=== PATIENT | male | born 1960 | race Caucasian/White ===

== ENCOUNTER 2018-05-25 07:23 | Day surgery (SDC) | payer OTHER ==
--- NOTE | 2018-05-23 16:03 | RAD REPORT ---
EXAM DESCRIPTION: RAD - Chest Pa And Lat (2 Views) - 05/23/2018 3:39 pm CLINICAL HISTORY: HTN Chest pain. COMPARISON: Chest Pa And Lat (2 Views) dated 07/16/2017; Abdomen 1 View (KUB) dated 07/08/2016 FINDINGS: The lungs are clear. The heart is normal in size. No displaced fractures. IMPRESSION: No acute or concerning finding suspected.
[2018-05-23 16:59] LABS: Absolute Lymphocytes (CBC) 2.4 K/uL (0.7-4.9); Absolute Monocytes 0.8 K/uL (0.1-1.3); Absolute Neutrophil 5.1 K/uL (1.8-8.0); Basophils % 0.5 % (0-1.3); Eosinophils % 1.5 % (0-4.4); Hematocrit 45.8 % (39.6-49.0); Lymphocytes % 28.5 % (15.3-44.8); MCH 30.8 pg (27.0-35.0); MPV 8.2 fL (7.6-11.3); Monocytes % 9.4 % (3.3-12.3); RBC Red Blood Cell Count 5.09 M/uL (4.33-5.43)
[2018-05-23 17:24] LABS: Potassium 4.5 mmol/L (3.5-5.1)
--- NOTE | 2018-05-23 19:09 | EKG ---
Test Date: 2018-05-23 Test Time: 15:31:00 Medical Insurance Clerk: [employer] MEASUREMENT RESULTS: Intervals: Rate: 73 KS: 160 QRSD: 106 QT: 382 QTc: 420 [place]: P: 47 KS: 160 QRS: -5 T: 37 INTERPRETIVE STATEMENTS: Normal sinus rhythm Normal ECG No previous ECG available for comparison Electronically Signed On 05-23-18 19:08:25 CDT by Juliocesar Jones
[2018-05-25] MEDS ORDERED: CEFAZOLIN/SWI 1gm 1 GM/10 ML SYR ONE (07:39)
[2018-05-25] MEDS ORDERED: NA CHLORIDE 0.9% 1,000 ML ONE (07:39)
[2018-05-25] MEDS ORDERED: BUPIVACAINE 0.5% PF 10 ML VIAL ONE (08:02)
[2018-05-25] MEDS ORDERED: FENTANYL CITR 100 MCG/2 ML ONE (08:36)
[2018-05-25] MEDS ORDERED: ONDANSETRON HCL 40 MG/20 ML VIAL ONE (08:36)
[2018-05-25] MEDS ORDERED: MIDAZOLAM HCL 2 MG/2 ML INJ ONE (08:36)
[2018-05-25] MEDS ORDERED: LIDOCAINE 2% MPF 5 ML VIAL ONE (08:36)
[2018-05-25] MEDS ORDERED: ROCURONIUM 50 MG/5 ML VIAL IV ONE (08:36)
[2018-05-25] MEDS ORDERED: PROPOFOL 200 MG/20 ML VIAL IV ONE (08:36)
[2018-05-25] MEDS ORDERED: GLYCOPYRROLATE 0.2 MG/ML SYR ONE (08:55)
--- NOTE | 2018-05-25 09:07 | P.BOP ---
Preoperative diagnosis: incarcerated tender ventral hernia Postoperative diagnosis: same Primary procedure: Open repair of incarcerated tender ventral hernia with mesh Estimated blood loss: <10cc Specimen: hernia sac, incarcerated omentum Findings: incarcerated omentum unable to be reduced Anesthesia: General Complications: None Transferred to: Recovery Room Condition: Good
[2018-05-25] MEDS ORDERED: HYDROCODONE/APAP 5/325 MG TAB ONE (10:00)
--- NOTE | 2018-05-25 17:06 | DS ---
Date of Discharge: 05/25/2018 Diagnosis: Incarcerated tender ventral hernia. Procedures: Open repair of incarcerated tender ventral hernia with mesh. Disposition: Home. Activity: As tolerated. No heavy lifting. Followup: Follow up in my office in 1 week. Call for appointment [phone]. Discharge Instructions: Keep area dry for 48 hours, then may shower. Medications: Include Vicodin q.4 hours p.r.n. pain, Bactrim DS p.o. b.i.d. MANDEEP/KYEL Voice ID: [id number] Report ID: [id number]
--- NOTE | 2018-05-25 17:06 | OP ---
Date of Procedure: 05/25/2018 Surgeon: Ezio Ivy MD Preoperative Diagnoses: Incarcerated tender ventral hernia, morbid obesity. Postoperative Diagnoses: Incarcerated tender ventral hernia, morbid obesity. Procedures: Open repair of incarcerated tender ventral hernia with mesh. Specimen: Hernia sac and incarcerated omentum. Findings: Incarcerated omentum, large amount, unable to be reduced so partial omentectomy have to be done. Anesthesia: General plus local. Indications: This is a case of a 57-year-old patient, comes to us with a large ventral hernia. The benefits, alternatives, and risks of repair fully explained which include, but are not limited to inf ection, bleeding, damage to adjacent structures, anesthesia complication, recurrence, ND, and even de ath. He also understands this may not relieve any symptoms. He might need more than one surgical in tervention. He understands the use of mesh. We might have to use it due to the size of his hernia. He understands the pros and cons of it and all the questions were answered to his satisfaction and h e did approve mesh use. The patient understands also the importance of no heavy lifting in the futur e and also losing weight. He signed a consent. Description Of Procedure: The patient was brought to the operating room, placed in supine position. Anesthesia was done without complication. Abdominal area was prepped and draped in sterile fashion. Marcaine 0.5% injected for local anesthetic, followed by sharp incision of the skin in the ventral region. Incision was carried down to subcutaneous tissue. We noticed this large hernia present. Ca refully the hernia sac was dissected free from the rest of the subcutaneous tissue until we noticed t he origin of it. We have to extend the incision in the fascia to allow us to manipulate the hernia s ac. The hernia sac was opened. Incarcerated omentum cannot be reduced, so we proceeded to ligate an d do partial omentectomy using Nissa clamps and stitches and ties. Omentum was removed. Hernia sac was ligated. The rest of the omentum was reduced back into the abdominal cavity after fully inspecti ng and making sure it was viable and no bleeding. The hernia sac was then removed too. Fascia edges were cleaned. Due to the size of the hernia mass, we proceeded to use the Ventralex that region to reinforce the area. The Ventralex was placed intraperitoneally with strap coming through the incisio n. The mesh was secured to the fascia using #1 Vicryl. This was done in multiple locations. Once t he mesh was secured to the fascia, then we proceeded to remove the straps of the mesh and then procee ded to close the fascia with a [id number] fashion #1 PDS multiple times. The patient tolerated the procedure well. The large space that the hernia was occupying was obliterated with the use of 3- 0 chromic approximating subcutaneous tissue to minimize the chance of seroma and the skin approximate d with promise. Sponge count and instrument counts were correct. The patient tolerated the procedur e well. The patient was sent to recovery in stable condition. MANDEEP/KYLE Voice ID: [id number] Report ID: [id number]
== END 2018-05-25 10:32 | disposition home or self-care (01) ==
LOC: OR 07:23
PROVIDERS: ATTEND Surgery
PROC: 0WUF0JZ Supplement Abdominal Wall with Synthetic Substitute, Open Approach (ICD-10-PCS; principal; 2018-05-25 08:45)
DX: K43.6 Other and unspecified ventral hernia with obstruction, without gangrene (principal); I10 Essential (primary) hypertension; E11.9 Type 2 diabetes mellitus without complications
CPT/HCPCS: 00790; 36415; 49561; 49568; 71046; 80048; 82962 ×2; 85025; 88302; 93005; J0690; J2250; J2405; J3010; J7030